=== PATIENT | male | born 2000 | race African-American/Black ===

== ENCOUNTER 2021-07-03 23:33 | Emergency (ER) | payer SELFPAY ==
[~2021-07-03] VITALS: Ht 172.7 cm; Wt 81.6 kg
[2021-07-03 23:49] VITALS: BP 118/66
[2021-07-04] MEDS ORDERED: ONDANSETRON 4 MG TAB.RAPDIS ONE (00:04)
--- NOTE | 2021-07-04 00:20 | NUR ---
pt was picked up by in stable condition
[2021-07-04] MEDS ORDERED: ONDANSETRON 4 MG TAB.RAPDIS SL ONE (00:30)
== END 2021-07-04 00:20 | disposition home or self-care (01) ==
LOC: ER 23:40
DX: T40.711A Poisoning by cannabis, accidental (unintentional), initial encounter (principal); Y92.89 Other specified places as the place of occurrence of the external cause
CPT/HCPCS: 99283; Q0162